=== PATIENT | female | born 1955 | race Caucasian/White ===

== ENCOUNTER 2018-04-29 01:03 | Inpatient (IN) | payer MEDICAID ==
[2018-04-29] VITALS (14 sets, daily range): BP systolic 92–141; BP diastolic 36–77; BMI 21.6
[~2018-04-29] VITALS: Ht 165.1 cm; Wt 70.8 kg
--- NOTE | ~2018-04-29 | HEMODYNAMI ---
PATIENT:GABRIEL PATEL MEDICAL RECORD: [id number] : 59 [id number] ADMISSION DATE: 04/29/18 Generatedon:05/05/201816:12 Patient name: GABRIEL PATEL Patient #: [id number] SSN: : 1955 Date of study: 05/05/2018 Page: Of Hemodynamic Procedure Report Patient Data Patient Demographics Procedure consent was obtained First Name: GABRIEL Gender: Female Last Name: JORGE : 1955 [facility] Initial: LAWSON Age: 62 year(s) Patient #: [id number] Race: Additional ID: [id number] Contact details Address: [address] [place] [address] rd State: [place] City: [place] [place] [place] Zip code: [address] Past Medical History Allergies Allergen Reaction Date Comments Reported Codeine 12/06/2014 Codeine 05/05/2018 Admission Admission Data Admission Date: 04/29/2018 Admission Time: 15:29 Admit Source: Other Room #: D.2118 Lab Results Lab Result Date: 05/05/2018 Lab Result Time: 0:00 Biochemistry Name Units Result Min Max BUN mg/dl 6 -*(----)-- 7 18 Creatinine mg/dl 0.9 --(-*--)-- 0.6 1.3 CBC Name Units Result Min Max Hemoglobin g/dl 9.1 *-(----)-- 13.5 17.5 Procedure Procedure Types Cath Procedure Diagnostic Procedure C [facility] w/Coronaries PCI Procedure Coronary Stent Coronary Stent Initial Peripheral Cath Diagnostic Procedure Semaphore Operator Peripheral Procedures Eovwi-Cchoqif-Ugl-Off Peripheral vascular Intervention Angioplasty Angioplasty Iliac Initial Procedure Description Procedure Date Procedure Date: 05/05/2018 Procedure Start Time: 15:40 Procedure End Time: 16:08 Procedure Staff Name Function Andrey Bosch MD Performing Physician Jian Kam RT Monitor Дмитрий Villa RT Scrub Cesar Vieira RN Nurse Procedure Data Cath Procedure Fluoroscopy Diagnostic fluoroscopy Total fluoroscopy Time: 4.7 time: 4.7 min min Diagnostic fluoroscopy Total fluoroscopy dose: 770 dose: 770 mGy mGy Contrast Material Contrast Material Type Amount (ml) Isovue 300 129 Entry Location Entry Primary Successful Side Size (Fr) Upsize Upsize Entry Closure S uccessful Closure Location 1 (Fr) 2 (Fr) Remarks Device Remarks Femoral Right 5 Fr Exoseal artery Femoral Left 6 Fr Exoseal artery Mid-Length Estimated blood loss: 10 ml Diagnostic catheters Device Type Used For End Catheter Placement MULTIPACK Pigtail 5 Fr Procedure catheter MULTIPACK JL 4.0 5Fr Procedure catheter MULTIPACK 3DRC 5Fr Procedure catheter Procedure Complications No complications Procedure Medications Medication Administration Route Dosage Oxygen etCO2 Nasal cannula 2 l/min Heparin Flush Bag added to field 2 bags (1000units/500ml NS) 0.9% NaCl I.V. 100 ml/hr Lidocaine 2% added to field 20 Fentanyl I.V. 50 mcg Versed I.V. 1 mg Fentanyl I.V. 50 mcg Versed I.V. 1 mg Heparin Bolus I.V. 4000 units Hemodynamics Rest HGB: 9.1 (g/dl) Heart Rate: 70 (bpm) Snapshots Pre Cath Intra NCS Post Cath Vital Signs Time Heart Resp SPO2 etCO2 NIBP (mmHg) Rhythm Pain Sedation Rate (ipm) (%) (mmHg) Status Level (bpm) 15:27:21 76 18 100 31.6 150/70(101) NSR 0 (11) 10(A) , No pain 15:31:39 73 17 100 27.1 124/68(96) NSR 0 (11) 10(A) , No pain 15:35:49 70 16 99 30.1 132/63(95) NSR 0 (11) 10(A) , No pain 15:40:03 71 16 100 25.6 136/61(94) NSR 0 (11) 10(A) , No pain 15:44:21 71 16 100 30.1 123/53(95) NSR 0 (11) 9(A) , No pain 15:48:31 74 16 100 25.6 137/63(100) NSR 0 (11) 9(A) , No pain 15:52:47 73 17 100 24.8 121/60(85) NSR 0 (11) 9(A) , No pain 15:56:59 74 17 100 25.6 124/55(100) NSR 0 (11) 9(A) , No pain 16:01:11 73 16 100 24.8 133/57(94) NSR 0 (11) 9(A) , No pain 16:04:19 71 17 100 27.1 124/65(106) NSR 0 (11) 9(A) , No pain 16:09:33 70 10 99 27.8 140/61(82) NSR 0 (11) 9(A) , No pain Medications Time Medication Route Dose Verified Delivered Reason Notes Effectiveness by by 15:25:36 Oxygen etCO2 2 Andrey Cesar Per physician Nasal l/min Danitza Vieira RN cannula 15:25:44 Heparin Flush added 2 Andrey Cesar used for Bag to bags Danitza Vieira RN procedure (1000units/500ml field NS) 15:25:57 0.9% NaCl I.V. 100 Andreyarpit Nortony Per physician ml/hr Danitza Vieira RN 15:26:06 Lidocaine 2% added 20ml Andrey Cesar used for to vial Danitza Vieira RN procedure field 15:39:38 Fentanyl I.V. 50 Andrey Cesar for sedation mcg Danitza Vieira RN 15:39:44 Versed I.V. 1 mg Andrey Cesar for sedation Danitza Vieira RN 15:41:43 Fentanyl I.V. 50 Andrey Cesar for sedation mcg Danitza Vieira RN 15:41:48 Versed I.V. 1 mg Andrey Cesar for sedation aDnitza Vieira RN 15:48:04 Heparin Bolus I.V. 4000 Andrey Cesar for units Danitza Vieira RN anticoagulation Procedure Log Time Note 15:01:00 Informed consent obtained and on chart 15:01:28 Admit Source: Other 15:02:11 Diagnostic Cath status Elective 15:02:13 Time tracking: Regular hours (M-F 7:00 - 5:00) 15:02:17 Plan of Care:Hemodynamics will remain stable., Cardiac rhythm will remain stable., Comfort level will be maintained., Respiratory function will remain adequate., Patient/ family verbilizes understanding of procedure., Procedure tolerated without complication., Recovers from procedure without complications.. 15:06:01 Cesar Vieira RN sent for patient. Start room use. 15:18:32 Patient received from PCU to CCL 2 Alert and oriented. Tansferred to table in Supine position. 15:18:34 Warm blankets applied, and rabia hugger turned on for patient comfort. 15:18:34 Correct patient and procedure confirmed by team. 15:18:36 ECG and BP/O2 sat monitors applied to patient. 15:25:36 Oxygen 2 l/min etCO2 Nasal cannula was administered by Cesar Vieira RN; Per physician; 15:25:44 Heparin Flush Bag (1000units/500ml NS) 2 bags added to field was administered by Cesar Vieira RN; used for procedure; 15:25:57 0.9% NaCl 100 ml/hr I.V. was administered by Cesar Vieira RN; Per physician; 15:26:06 Lidocaine 2% 20ml vial added to field was administered by Cesar Vieira RN; used for procedure; 15:26:08 Vital chart was started 15:34:18 Baseline sample Acquired. 15:34:30 Rhythm: sinus rhythm 15:34:31 Full Disclosure recording started 15:35:26 H&P Date Dictated: 04/29/2018 Within 30 days and on chart.. 15:36:22 Pre-procedure instructions explained to patient. 15:36:25 Pre-op teaching completed and patient verbalized understanding. 15:36:33 Family unavailable. 15:36:35 Patient NPO since Midnight. 15:36:43 Patient allergic to Codeine 15:36:46 Is the patient allergic to Iodine/contrast media? No. 15:37:09 Is patient on blood thinner?Yes 15:37:13 ACC The patient was administered the following blood thiners within the last 24 hours: ACCPlavix 15:37:30 Patient diabetic? No. 15:37:30 ----Pre-sedation anethsthesia assessment.---- 15:37:32 Previous problem with sedation/anesthesia? No ? 15:37:35 Snore? Yes 15:37:36 Sleep apnea? No 15:37:39 Deviated septum? No 15:37:40 Opens mouth fully? Yes 15:37:41 Sticks out tongue? Yes 15:37:45 Airway obstruction? Yes COPD 15:37:53 Dentures? Yes IN TIGHT 15:37:58 Pre procedure: right dorsailis pedis pulse 1+ Palpable, but thready & weak; easily obliterated 15:38:20 Patient pain scale 0/10 ?. 15:38:31 IV patent on arrival in left antecubital with 0.9% NaCl at 10ml/hr. 15:38:56 Lab Result : Creatinine 0.9 mg/dl 15:38:56 Lab Result : BUN 6 mg/dl 15:38:56 Lab Result : Hemoglobin 9.1 g/dl 15:38:58 Lab results completed and on chart. 15:39:02 Right groin area was prepped with chlora-prep and draped in sterile fashion 15:39:02 Alarms reviewed by R. N. 15:39:03 Sharps counted by scrub and verified by R.N. 15:39:06 Physician arrived 15:39:07 --------ALL STOP TIME OUT------ 15:39:07 Final Timeout: patient, procedure, and site verified with staff and physician. All members of the team are in agreement. 15:39:09 Right groin site verified by team. 15:39:13 Physical assessment completed. ASA score P 3 - A patient with severe systemic disease as per Andrey Bosch MD. 15:39:18 Sedation plan: IV Moderate Sedation Medication:Versed, Fentanyl 15:39:24 Use device set Femoral Dx 15:39:25 ACIST Syringe (56367) opened to sterile field. 15:39:25 Bag Decanter () opened to sterile field. 15:39:26 Medline Cath Pack ([id number]) opened to sterile field. 15:39:26 DIAGNOSTIC WIRE .035 260cm J wire (960629) opened to sterile field. 15:39:28 ACIST Hand Control (43015) opened to sterile field. 15:39:28 ACIST Manifold (18162) opened to sterile field. 15:39:29 DIAGNOSTIC Multipack 5Fr catheter set (BR1107) opened to sterile field. 15:39:29 Tegaderm 4 x 4 (1626W) opened to sterile field. 15:39:29 MICROPUNCTURE 4FR Cook ([id number]) opened to sterile field. 15:39:31 SHEATH 5FR [place] (MIQ198) opened to sterile field. 15:39:38 Fentanyl 50 mcg I.V. was administered by Cesar Vieira RN; for sedation; 15:39:44 Versed 1 mg I.V. was administered by Cesar Vieira RN; for sedation; 15:40:01 Zero performed for pressure channel P1 15:40:54 Procedure started. 15:40:57 Local anesthetic to right femoral artery with Lidocaine 2% by Andrey Bosch MD.INITIAL ACCESS ONLY 15:41:05 A 5 Fr sheath was inserted into the Right Femoral artery 15:41:43 Fentanyl 50 mcg I.V. was administered by Cesar Vieira RN; for sedation; 15:41:48 Versed 1 mg I.V. was administered by Cesar Vieira RN; for sedation; 15:41:50 A MULTIPACK Pigtail 5 Fr catheter was advanced over the wire and used for Procedure. 15:42:00 LV gram done using AUGUSTIN 15:42:02 Injector settings: Ml/sec: 10, Volume: 20, 15:42:03 LV hemodynamics recorded. 15:42:08 EF : 55 % 15:42:28 Abdominal angiogram w/ runoff was performed. 15:42:30 Right leg runoff performed. 15:42:54 Left leg runoff performed. 15:43:21 SHEATH 6FR Brite Tip 35cm ([id number]) opened to sterile field. 15:43:25 INFLATOR Merit BasixCompak (JZ6491) opened to sterile field. 15:43:29 Catheter exchanged over wire. 15:43:34 A MULTIPACK JL 4.0 5Fr catheter was advanced over the wire and used for Procedure. 15:43:38 LCA angiography performed. 15:43:40 Catheter exchanged over wire. 15:43:46 A MULTIPACK 3DRC 5Fr catheter was advanced over the wire and used for Procedure. 15:43:48 RCA angiography performed. 15:45:18 Catheter removed. 15:46:22 Local anesthetic to left femerol artery with Lidocaine 2% by Andrey Bosch MD.ADDITIONAL ACCESS 15:46:34 A 6 Fr Mid-Length sheath was inserted into the Left Femoral artery 15:46:56 J wire advanced. 15:48:04 Heparin Bolus 4000 units I.V. was administered by Cesar Vieira RN; for anticoagulation; 15:49:07 Wire advanced across lesion. 15:49:12 Inflate balloon Inflation number: 1 A POWERFLEX PRO 7.0 x 20 x 135 cm balloon ([id number]) was prepped and advanced across the Ostial Common Iliac, Left, then inflated to 13 DALLIN for 0:10 (min:sec). 15:49:30 GUIDE 6FR XBLAD 3.5 catheter ([id number]) opened to sterile field. 15:49:45 EXOSEAL 6Fr (EX600) opened to sterile field. 15:50:03 Balloon removed over the wire. 15:50:22 6 Fr XBLAD 3.5 guide catheter was inserted over the wire 15:51:30 CHOICE PT ES wire advanced. 15:51:53 Wire advanced across lesion. 15:53:15 Inflate balloon Inflation number: 1 A EUPHORA 2.0 x 20 Balloon ([id number]) was prepped and advanced across the Mid CX, then inflated to 15 DALLIN for 0:10 (min:sec). 15:53:29 Inflation number: 2 The EUPHORA 2.0 x 20 Balloon ([id number]) was reinflated across the Mid CX, to 21 DALLIN for 0:10 (min:sec). 15:54:02 Balloon re-inserted over wire. 15:54:53 Place stent Inflation Number: 3 A INTEGRITY RX 2.5 x 22 stent ([id number]) was prepped and advanced across the Mid CX. The stent was deployed at 17 DALLIN for 0:10 (min:sec). 15:56:58 Inflate balloon Inflation number: 4 A NC EUPHORA 2.5 x 12 balloon ([id number]) was prepped and advanced across the Mid CX, then inflated to 23 DALLIN for 0:10 (min:sec). 15:57:44 Balloon removed over the wire. 15:57:45 Wire removed. 15:57:48 Guide catheter removed. 15:58:00 EXOSEAL 5Fr (EX500) opened to sterile field. 15:58:08 Sheath removed intact; hemostasis achieved with Exoseal to the Left Femoral artery. 15:58:13 Sheath removed intact; hemostasis achieved with Exoseal to the Right Femoral artery. 15:58:14 Procedure ended.(Physican Out) 16:06:09 Fluoroscopy time 04.70 minutes. 16:06:21 Flurop Dose total: 770 16:06:21 Fluoroscopy dose: 770 mGy 16:06:27 Contrast amount:Isovue 300 129ml. 16:06:31 Sharps counted by scrub and verified by R.N. 16:06:33 Insertion/operative site no bleeding no hematoma. 16:07:04 Post-op/insertion site Right Femoral artery dressed using a 4 x 4 and Tegaderm. 16:07:06 Post-op/insertion site Left Femoral artery dressed using a 4 x 4 and Tegaderm. 16:07:13 Post right femoral artery:stable, soft, clean and dry 16:07:17 Post left femerol artery:stable, soft, clean and dry 16:07:19 Post Procedure Pulses reassessed and unchanged 16:07:26 Post-procedure physical assessment completed. ASA score P 3 - A patient with severe systemic disease as per Andrey Bosch MD. 16:07:50 Post procedure rhythm: unchanged. 16:07:53 Estimated blood loss: 10 ml 16:07:57 Post procedure instruction explained to patient.Patient verbalizes understanding. 16:07:57 Patient needs reinforcement of post procedure teaching. 16:08:22 Procedure type changed to Cath procedure, Diagnostic procedure, LHC, LHC w/Coronaries, PCI procedure, Coronary Stent, Coronary Stent Initial, Peripheral Cath Diagnostic Procedure, Semaphore Operator Peripheral Procedures, Fjmwu-Aegiglj-Oiz-Off, Peripheral vascular Intervention, Angioplasty, Angioplasty Iliac Initial 16:08:36 Procedure and supply charges have been captured, reviewed, submitted and are correct. 16:08:38 Procedure Complication : No complications 16:08:40 Vital chart was stopped 16:08:41 See physician's report for complete and final results. 16:08:42 Report given to PCU. 16:08:45 Patient transfered to PCU with Stretcher. 16:08:46 Procedure ended. 16:08:46 Full Disclosure recording stopped 16:08:50 End room use (Document Last) Intervention Summary Intervention Notes Time ActionType Lesion and Equipment Action# Pressure Duration Attributes Used 15:49:12 Inflate Ostial POWERFLEX 1 13 00:10 balloon Common PRO 7.0 x 20 Iliac, Left x 135 cm balloon ([id number]) 15:53:15 Inflate Mid CX EUPHORA 2.0 1 15 00:10 balloon x 20 Balloon ([id number]) 15:53:29 Reinflate Mid CX EUPHORA 2.0 2 21 00:10 balloon x 20 Balloon ([id number]) 15:54:53 Place stent Mid CX INTEGRITY RX 3 17 00:10 2.5 x 22 stent ([id number]) 15:56:58 Inflate Mid CX NC EUPHORA 4 23 00:10 balloon 2.5 x 12 balloon ([id number]) Device Usage Item Name Manufacture Quantity Catalog Hospital Part Current Minima l Lot# / Number Charge Number Stock Stock Serial# Code ACIST Syringe Acist 1 83374 120173 510510 059174 20 (09385) Medical Systems Inc Bag Decanter Microtek 1 771498 82591 564691 5 () Medical Inc. Medline Cath Medline 1 [id number] 171292 07123 813652 5 Pack ([id number]) DIAGNOSTIC St Elfego 1 883332 323803 903194 037565 30 WIRE .035 260cm J wire (634932) ACIST Hand Acist 1 38469 505676 132448 101308 5 Control Medical (34908) Systems Inc ACIST Acist 1 67365 232195 597261 352379 5 Manifold Medical (48403) Systems Inc DIAGNOSTIC Cardinal 1 GE7820 952051 43948 340423 30 Multipack 5Fr Health catheter set (VT5066) Tegaderm 4 x 3M 1 1626W 298354 696647 827559 5 4 (1626W) MICROPUNCTURE Cook Medical 1 X01199 701375 337498 513431 5 4FR Cook (E49602) SHEATH 5FR Terumo 1 CYR924 447260 792016 540534 5 [place] (BBT083) MULTIPACK Cardinal 1 816158 5 Pigtail 5 Fr Health catheter SHEATH 6FR Cardinal 1 608806G 764239 741329 700217 1 CHNLe [place] Health 35cm (633336C) INFLATOR Merit 1 EP7497 908204 422243 307453 15 [facility] Medical BasixCompak (JD6981) MULTIPACK JL Cardinal 1 456647 5 4.0 5Fr Health catheter MULTIPACK Cardinal 1 812496 5 3DRC 5Fr Health catheter POWERFLEX PRO Cardinal 1 [id number] 955983 614058 017409 5 7.0 x 20 x Health 135 cm balloon (2709709F) GUIDE 6FR Cardinal 1 [id number] 715037 882795 419628 10 XBLAD 3.5 Health catheter ([id number]) EXOSEAL 6Fr Cardinal 1 EX600 592509 931145 770056 10 (EX600) Health EUPHORA 2.0 x Medtronic 1 [id number] 460433 234485 704214 5 [id number] 20 Balloon ([id number]) INTEGRITY RX Medtronic 1 [id number] 984289 143206 607554 5 [id number] 2.5 x 22 stent ([id number]) NC EUPHORA Medtronic 1 [id number] 359660 581950 682311 1 [id number] 2.5 x 12 balloon ([id number]) EXOSEAL 5Fr Cardinal 1 EX500 242426 889162 878535 10 (EX500) Health Signature Audit [place] Stage Time Signature Unsigned Intra-Procedure 05/05/2018 Jian Kam 4:12:07 PM RT(R) Signatures Monitor : Jian Kam RT Signature : Date : Time : [address] [place] [address]
[~2018-04-29 01:03] MED LIST: ASPIRIN81 MG PO; CLEOCIN HCL150 MG PO; EFFIENT10 MG PO; HYDROCODONE-APA1 TAB PO; IBUPROFEN200 MG PO; LISINOPRIL-HCTZ1 T11 PO; PERCOCET 10/3251 TA1 PO; PHENERGAN25 M1 PO; PLAVIX75 MG PO
[2018-04-29 01:44] LABS: BASOPHILS 0.2 % (0-2); HEMATOCRIT 34.5 % (36.0-48.0); HEMOGLOBIN 11.3 g/dL (12-16); IMMATURE GRANULOCYTES 0.7 % (0-5); LYMPHOCYTES 27.6 % (15-50); MCH 30.3 pg (26.0-34.0); MCHC 32.8 g/dL (31.0-37.0); MCV 92.5 fL (80.0-100.0); MEAN PLATELET VOLUME 9.5 fL (7.4-10.4); MONOCYTES 7.8 % (2-11); NEUTROPHILS 62.7 % (40-80); PLATELET COUNT 289 10x3/uL (130-400); RBC 3.73 10x6/uL (4.00-5.40); RDW 14.1 % (11.5-14.5)
[2018-04-29 01:54] LABS: INR 1.05 (0.85-1.17); PROTIME 13.2 SECONDS (11.6-15.0)
[2018-04-29 01:55] LABS: APTT 30.6 SECONDS (22.8-39.4)
[2018-04-29 01:58] LABS: ALBUMIN 2.9 g/dL (3.4-5.0); ANION GAP 10.1 mmol/L (8-16); BILIRUBIN - TOTAL 0.12 mg/dL (0.2-1.3); CALCIUM 8.8 mg/dL (8.5-10.1); CARBON DIOXIDE 27.6 mmol/L (21.0-32.0); CREATININE - SERUM 1.5 mg/dL (0.6-1.3); POTASSIUM - SERUM 3.7 mmol/L (3.5-5.1); PROTEIN - SERUM 6.3 g/dL (6.4-8.2)
[2018-04-29 02:28] LABS: CKMB 3.8 U/L (0.0-3.6); CREATINE KINASE 55 UL (21-215); TROPONIN-I 0.021 ng/mL (0.000-0.060)
[2018-04-29 03:26] LABS: HEMATOCRIT 33.7 % (36.0-48.0); HEMOGLOBIN 11.1 g/dL (12-16); MCH 30.5 pg (26.0-34.0); MCHC 32.9 g/dL (31.0-37.0); MCV 92.6 fL (80.0-100.0); MEAN PLATELET VOLUME 9.7 fL (7.4-10.4); RBC 3.64 10x6/uL (4.00-5.40); RDW 14.3 % (11.5-14.5); WBC 9.4 10x3/uL (4.8-10.8)
--- NOTE | 2018-04-29 13:29 | CN ---
PATIENT NAME:GABRIEL BUSTAMANTE MEDICAL RECORD: [id number] : 59 LOCATION:[facility] ADMIT DATE: 04/29/18 ACCOUNT: [id number] CONSULTING PHYSICIAN: JUVE BRUMFIELD MD REFERRING PHYSICIAN: JUVE BRUMFIELD MD DATE OF CONSULTATION: 04/29/2018 CARDIOLOGY CONSULTATION DIAGNOSES: 1. PVD. 2. Claudication. 3. Limb threatening ischemia, left leg. 4. Angina. 5. Unsteady gait, dizziness. HISTORY OF PRESENT ILLNESS: Mrs. Bustamante presents with multiple complaints, but her main complaint is cold painful left lower extremity. She does have a history of peripheral vascular disease and has had a stent in that leg. It has been a number of years ago, it came on her 2 days ago. It has worsened. She was put on a heparin drip. The leg is now warmer, but she continues to have significant pain. She as well has had chest pain compatible with angina. She has not had a history of coronary artery disease and as well has had unsteady gait, multiple episodes of dizziness and near syncope. PHYSICAL EXAMINATION: GENERAL APPEARANCE: Well-nourished, well-developed, appears stated age. Level of distress, comfortable. PSYCHIATRIC: Mental status, alert, normal affect. Orientation, oriented to time, place and person. EYES: Lids and conjunctiva, noninjected. No discharge, no pallor. ENT: Lips, teeth, gums, normal dentition. Oropharynx, no cyanosis, no pallor. NECK: Carotid arteries, bilateral normal upstroke, no bruits, no thrills. JUGULAR VEINS: No jugular venous pressure or distention. CERVICAL LYMPH NODES: Nontender, nonenlarged. THYROID: Not enlarged. Nontender. No nodules. LUNGS: Respiratory effort, unlabored. CHEST: Normal curvature. No thoracic deformity. No chest wall tenderness. Percussion, resonant. Auscultation, clear. No wheezes, no rales, no rhonchi. CARDIOVASCULAR: Precordial exam, nondisplaced. No heaves or pericardial thrills. Rate and rhythm, regular. Heart sounds, normal S1, normal S2. No S3, no gallop, no rub. Systolic murmur, not heard. Diastolic murmur, not heard. EXTREMITIES: No cyanosis, no edema. Peripheral pulses, full and equal in all extremities, except as noted. No bruits appreciated. ABDOMEN: Soft, nondistended. Normal aorta. No bruit. Nontender. No masses. Liver, nontender, no hepatomegaly. Spleen, nontender, no splenomegaly. MUSCULOSKELETAL: No joint tenderness. No joint swelling. No erythema. NEUROLOGICAL: Normal gait, normal strength, normal tone. SKIN: Warm and dry. OVERALL IMPRESSION: The leg discomfort being acute associated with a cool leg in a patient with a past history of peripheral vascular disease is extremely concerning for limb threatening ischemia. We will proceed with aortofemoral runoff as well. Due to the chest pain, we will proceed with coronary angiography and we will do 4-vessel carotid vertebral angiography due to the CONSULT REPORT [id number] GABRIEL BUSTAMANTE neurologic symptomatology. TRANSINT:[id number] Voice Confirmation ID: [id number] DOCUMENT ID: [id number] JUVE BRUMFIELD MD at 1329 CC: [id number] DICTATION DATE: 04/29/18919 PEANUT SHELLER: 04/29/18 1212 ADM IN [facility] [address] [place] [address]
[2018-04-29 16:03] LABS: BASOPHILS 0.4 % (0-2); EOSINOPHILS 1.1 % (0-7); HEMATOCRIT 38.8 % (36.0-48.0); HEMOGLOBIN 12.5 g/dL (12-16); IMMATURE GRANULOCYTES 0.4 % (0-5); LYMPHOCYTES 32.1 % (15-50); MCH 30.7 pg (26.0-34.0); MCHC 32.2 g/dL (31.0-37.0); MONOCYTES 8.7 % (2-11); NEUTROPHILS 57.3 % (40-80); PLATELET COUNT 307 10x3/uL (130-400); RBC 4.07 10x6/uL (4.00-5.40); RDW 14.5 % (11.5-14.5); WBC 11.1 10x3/uL (4.8-10.8)
[2018-04-29 16:04] LABS: MCV 95.3 fL (80.0-100.0)
[2018-04-29 16:44] LABS: ANION GAP 12.7 mmol/L (8-16); CALCIUM 8.6 mg/dL (8.5-10.1); CARBON DIOXIDE 25.2 mmol/L (21.0-32.0); CREATININE - SERUM 1.2 mg/dL (0.6-1.3); POTASSIUM - SERUM 3.9 mmol/L (3.5-5.1)
--- NOTE | 2018-04-29 17:01 | MORECARE ---
CASE MANAGEMENT DISCHARGE SUMMARY PATIENT: GABRIEL PATEL UNIT: [id number] ADM DATE: 04/29/18 AGE: 62 : 59 SEX: F ROOM/BED: D.E13 AUTHOR: CHRISSY SEARS PHYSICIAN: REFERRING PHYSICIAN: ARPITA RAYMUNDO MD DATE OF SERVICE: 04/29/18 Discharge Plan Patient Name[facility]ABRIEL [facility] [facility] 1955 Planned Disposition: Home Anticipated Discharge Date: 05/01/18 Discharge Date: Expected LOS: 2 Initial Reviewer: [email or web address] Initial Review Date: 04/29/2018 Generated: 04/29/18 6:00 pm DCPIA - Discharge Planning Initial Assessment Updated by [email or web address]: Brisa Walton on 04/29/18 5:00 pm * Is the patient Alert and Oriented? Yes * How many steps to enter\exit or inside your home? None * PCP Doesn't have a PCP * Pharmacy [facility] * Preadmission Environment Home Alone * ADLs Independent * Equipment None * List name and contact numbers for known caregivers / representatives who currently or will assist patient after discharge: Keo Calderon [facility] - [phone] * Verbal permission to speak to the caregivers and representatives has been obtained from the patient. Yes * Community resources currently utilized None * Additional services required to return to the preadmission environment? No * Can the patient safely return to the preadmission environment? Yes * Has this patient been hospitalized within the prior 30 days at any hospital? No Patient Name: GABRIEL PATEL Page 25149 at 1701 All edits/amendments must be made on the electronic document DICTATION DATE: 04/29/181699 INCOME TAX EXPERT: COTY 04/29/181699 RPT#: [id number] DC DATE: STATUS: ADM IN [facility] [address] [place] [address] END OF REPORT
--- NOTE | 2018-04-29 17:09 | MORECARE ---
CASE MANAGEMENT DISCHARGE SUMMARY PATIENT: GABRIEL PATEL UNIT: [id number] ADM DATE: 04/29/18 AGE: 62 : 59 SEX: F ROOM/BED: D.E13 AUTHOR: ORIONDOC PHYSICIAN: REFERRING PHYSICIAN: ARPITA RAYMUNDO MD DATE OF SERVICE: 04/29/18 Discharge Plan Patient Name: GABRIEL PATEL Facility: [facility]:[place] : 1955 Planned Disposition: Home Anticipated Discharge Date: 05/01/18 Discharge Date: Expected LOS: 2 Initial Reviewer: [email or web address] Initial Review Date: 04/29/2018 Generated: 04/29/18 6:09 pm DCP- Discharge Planning Updated by [email or web address]: Brisa Walton on 04/29/18 4:[address] Patient Name: GABRIEL PATEL Admission Status: ER Accout number: [id number] Admission Date: 04-29-2018 : 1955 Admission Diagnosis: Attending: ARPITA RAYMUNDO Current LOS: 1 Anticipated DC Date: 05-01-2018 Planned Disposition: Home Primary Insurance: MEDICAID [place] Discharge Planning Comments: CM met with patient to complete initial dc planning assessment. CM educated patient on the CM role and verbal consent given by patient to complete assessment. Patient lives at home independently and reports her mother lives with her. At discharge patient plans to return home and feels this is a safe discharge. CM discussed availability of home health, rehab services, and medical equipment. Patient denied known discharge needs at this time. CM will continue to follow and will assist as needed with dc plans/needs. Grocery Caddy: Brisa Walton RN, [facility] DCPIA - Discharge Planning Initial Assessment Updated by [email or web address]: Brisa Walton on 04/29/18 5:00 pm * Is the patient Alert and Oriented? Yes * How many steps to enter\exit or inside your home? None * PCP Doesn't have a PCP * Pharmacy [facility] * Preadmission Environment Home Alone * ADLs Independent * Equipment None * List name and contact numbers for known caregivers / representatives who currently or will assist patient after discharge: Keo Calderon [facility] - [phone] * Verbal permission to speak to the caregivers and representatives has been obtained from the patient. Yes * Community resources currently utilized None * Additional services required to return to the preadmission environment? No * Can the patient safely return to the preadmission environment? Yes * Has this patient been hospitalized within the prior 30 days at any hospital? No Last DP export: 04/29/18 4:00 p Patient Name: GABRIEL PATEL Page 02998 at 1709 All edits/amendments must be made on the electronic document DICTATION DATE: 04/29/181708 VOCATIONAL TECHNICAL EDUCATION DIRECTOR: COTY 04/29/181708 RPT#: [id number] DC DATE: STATUS: ADM IN [facility] [address] [place] [address] END OF REPORT
[2018-04-29 20:04] LABS: HEMATOCRIT 40.4 % (36.0-48.0); HEMOGLOBIN 13.3 g/dL (12-16)
[2018-04-30] VITALS (20 sets, daily range): BP systolic 75–129; BP diastolic 41–72; Ht 165.1 cm; Wt 70.8 kg
[2018-04-30 07:11] LABS: ANION GAP 10.8 mmol/L (8-16); CALCIUM 8.1 mg/dL (8.5-10.1); CARBON DIOXIDE 25.5 mmol/L (21.0-32.0); CREATININE - SERUM 1.1 mg/dL (0.6-1.3); POTASSIUM - SERUM 4.3 mmol/L (3.5-5.1); RBC 3.53 10x6/uL (4.00-5.40)
[2018-04-30 07:12] LABS: HEMOGLOBIN 10.6 g/dL (12-16); MCHC 32.1 g/dL (31.0-37.0); MCV 93.5 fL (80.0-100.0); PLATELET COUNT 287 10x3/uL (130-400); RDW 14.4 % (11.5-14.5)
[2018-04-30 08:14] LABS: ANISOCYTOSIS OCC; LYMPHOCYTES 10 % (15-50); MONOCYTES 5 % (2-11); NEUTROPHILS 73 % (40-80); PLATELET ESTIMATE NORMAL
[2018-04-30 13:38] LABS: HEMATOCRIT 31.9 % (36.0-48.0); HEMOGLOBIN 10.4 g/dL (12-16)
[2018-04-30 15:08] LABS: APPEARANCE CLEAR (CLEAR); BILIRUBIN NEGATIVE (NEGATIVE); COLOR YELLOW (YELLOW); GLUCOSE NEGATIVE (NEGATIVE); KETONE SMALL mg/dL (NEGATIVE); NITRITE NEGATIVE (NEGATIVE); PROTEIN NEGATIVE (NEGATIVE); UROBILINOGEN NORMAL (NORMAL)
[2018-04-30 20:32] LABS: HEMATOCRIT 30.1 % (36.0-48.0); HEMOGLOBIN 9.6 g/dL (12-16)
[2018-05-01] VITALS (15 sets, daily range): BP systolic 79–112; BP diastolic 41–62
[2018-05-01 05:25] LABS: HEMATOCRIT 29.1 % (36.0-48.0); HEMOGLOBIN 9.5 g/dL (12-16); MCH 30.4 pg (26.0-34.0); MCHC 32.6 g/dL (31.0-37.0); MCV 93.3 fL (80.0-100.0); MEAN PLATELET VOLUME 9.9 fL (7.4-10.4); PLATELET COUNT 275 10x3/uL (130-400); RBC 3.12 10x6/uL (4.00-5.40); RDW 14.4 % (11.5-14.5)
[2018-05-01 05:26] LABS: WBC 14.3 10x3/uL (4.8-10.8)
[2018-05-01 05:29] LABS: ANION GAP 11.9 mmol/L (8-16); CALCIUM 8.1 mg/dL (8.5-10.1); CARBON DIOXIDE 24.6 mmol/L (21.0-32.0); CREATININE - SERUM 1.1 mg/dL (0.6-1.3)
[2018-05-01 05:31] LABS: POTASSIUM - SERUM 3.5 mmol/L (3.5-5.1)
[2018-05-01 05:49] LABS: LYMPHOCYTES 19 % (15-50); MONOCYTES 4 % (2-11); NEUTROPHILS 77 % (40-80); PLATELET ESTIMATE NORMAL
[2018-05-02] VITALS: BP 100/38
[2018-05-02 04:00] VITALS: BP 96/53
[2018-05-02 06:12] LABS: BASOPHILS 0.2 % (0-2); HEMATOCRIT 29.4 % (36.0-48.0); HEMOGLOBIN 9.5 g/dL (12-16); IMMATURE GRANULOCYTES 0.2 % (0-5); LYMPHOCYTES 17.2 % (15-50); MCHC 32.3 g/dL (31.0-37.0); MCV 92.7 fL (80.0-100.0); MEAN PLATELET VOLUME 9.8 fL (7.4-10.4); MONOCYTES 7.2 % (2-11); NEUTROPHILS 74.2 % (40-80); PLATELET COUNT 273 10x3/uL (130-400); RBC 3.17 10x6/uL (4.00-5.40); RDW 14.1 % (11.5-14.5)
[2018-05-02 06:30] LABS: ANION GAP 13.2 mmol/L (8-16); CALCIUM 8.8 mg/dL (8.5-10.1); CARBON DIOXIDE 25.8 mmol/L (21.0-32.0)
[2018-05-02 06:41] LABS: WBC 8.8 10x3/uL (4.8-10.8)
[2018-05-02 09:21] VITALS: BP 114/49
[2018-05-02 12:52] VITALS: BP 116/49
[2018-05-02 16:12] VITALS: BP 107/45
[2018-05-02 19:00] VITALS: BP 102/61
[2018-05-03] VITALS: BP 115/49
[2018-05-03 04:00] VITALS: BP 113/67
[2018-05-03 07:29] LABS: BASOPHILS 0.3 % (0-2); EOSINOPHILS 0.9 % (0-7); HEMATOCRIT 29.3 % (36.0-48.0); HEMOGLOBIN 9.5 g/dL (12-16); IMMATURE GRANULOCYTES 0.6 % (0-5); LYMPHOCYTES 17.8 % (15-50); MCH 29.8 pg (26.0-34.0); MCHC 32.4 g/dL (31.0-37.0); MCV 91.8 fL (80.0-100.0); MONOCYTES 5.9 % (2-11); NEUTROPHILS 74.5 % (40-80); RBC 3.19 10x6/uL (4.00-5.40); RDW 14.1 % (11.5-14.5); WBC 7.9 10x3/uL (4.8-10.8)
[2018-05-03 07:30] LABS: PLATELET COUNT 333 10x3/uL (130-400)
[2018-05-03 07:41] LABS: ANION GAP 11.1 mmol/L (8-16); CALCIUM 8.1 mg/dL (8.5-10.1); CARBON DIOXIDE 25.9 mmol/L (21.0-32.0)
[2018-05-03 10:34] VITALS: BP 114/57
[2018-05-03 13:06] VITALS: BP 106/57
[2018-05-03 16:17] VITALS: BP 131/57
[2018-05-03 19:54] VITALS: BP 114/62
[2018-05-04 03:44] VITALS: BP 106/34
[2018-05-04 05:12] LABS: BASOPHILS 0.3 % (0-2); EOSINOPHILS 1.9 % (0-7); HEMOGLOBIN 9.3 g/dL (12-16); IMMATURE GRANULOCYTES 0.7 % (0-5); LYMPHOCYTES 24.9 % (15-50); MCHC 32.1 g/dL (31.0-37.0); MCV 93.5 fL (80.0-100.0); MEAN PLATELET VOLUME 9.9 fL (7.4-10.4); MONOCYTES 8.1 % (2-11); NEUTROPHILS 64.1 % (40-80); PLATELET COUNT 323 10x3/uL (130-400); RDW 14.3 % (11.5-14.5)
[2018-05-04 05:17] LABS: WBC 5.8 10x3/uL (4.8-10.8)
[2018-05-04 05:43] LABS: CALCIUM 8.3 mg/dL (8.5-10.1); CARBON DIOXIDE 23.9 mmol/L (21.0-32.0); CREATININE - SERUM 0.9 mg/dL (0.6-1.3); POTASSIUM - SERUM 3.9 mmol/L (3.5-5.1)
[2018-05-04 09:27] VITALS: BP 102/49
[2018-05-04 11:42] VITALS: BP 111/52
[2018-05-04 15:57] VITALS: BP 113/57
[2018-05-04 20:00] VITALS: BP 128/61
[2018-05-05 04:00] VITALS: BP 132/56
[2018-05-05 05:44] LABS: BASOPHILS 0.5 % (0-2); EOSINOPHILS 2.5 % (0-7); HEMATOCRIT 28.9 % (36.0-48.0); HEMOGLOBIN 9.1 g/dL (12-16); IMMATURE GRANULOCYTES 0.9 % (0-5); LYMPHOCYTES 30.1 % (15-50); MCH 29.4 pg (26.0-34.0); MCHC 31.5 g/dL (31.0-37.0); MCV 93.5 fL (80.0-100.0); MEAN PLATELET VOLUME 9.8 fL (7.4-10.4); MONOCYTES 9.5 % (2-11); NEUTROPHILS 56.5 % (40-80); PLATELET COUNT 384 10x3/uL (130-400); RBC 3.09 10x6/uL (4.00-5.40); RDW 14.3 % (11.5-14.5); WBC 5.7 10x3/uL (4.8-10.8)
[2018-05-05 06:01] LABS: ANION GAP 10.7 mmol/L (8-16); CALCIUM 8.5 mg/dL (8.5-10.1); CREATININE - SERUM 0.9 mg/dL (0.6-1.3); POTASSIUM - SERUM 3.7 mmol/L (3.5-5.1)
[2018-05-05 08:56] VITALS: BP 128/58
[2018-05-05 19:00] VITALS: BP 150/69
[2018-05-06 04:00] VITALS: BP 146/65
[2018-05-06 05:15] LABS: BASOPHILS 0.4 % (0-2); EOSINOPHILS 2.1 % (0-7); HEMATOCRIT 30.7 % (36.0-48.0); HEMOGLOBIN 9.8 g/dL (12-16); LYMPHOCYTES 16.1 % (15-50); MCH 29.6 pg (26.0-34.0); MCHC 31.9 g/dL (31.0-37.0); MCV 92.7 fL (80.0-100.0); MEAN PLATELET VOLUME 9.7 fL (7.4-10.4); MONOCYTES 8.6 % (2-11); NEUTROPHILS 71.8 % (40-80); PLATELET COUNT 396 10x3/uL (130-400); RBC 3.31 10x6/uL (4.00-5.40); RDW 14.2 % (11.5-14.5)
[2018-05-06 05:20] LABS: WBC 7.9 10x3/uL (4.8-10.8)
[2018-05-06 05:32] LABS: ANION GAP 12.4 mmol/L (8-16); CALCIUM 8.5 mg/dL (8.5-10.1); CREATININE - SERUM 0.9 mg/dL (0.6-1.3); POTASSIUM - SERUM 3.4 mmol/L (3.5-5.1)
[2018-05-06 07:00] VITALS: BP 100/67
--- NOTE | 2018-05-06 10:23 | OP ---
PATIENT NAME: GABRIEL PATEL MEDICAL RECORD: [id number] :59 LOCATION:D.M2 D.2118 ADMISSION DATE:04/29/18 SURGEON: JUVE BRUMFIELD MD DATE OF OPERATION: 05/05/2018 PROCEDURES: 1. ENTREPRENEURSHIP PROGRAM DIRECTOR, left iliac. 2. Aortofemoral runoff. 3. Abdominal aortography. INDICATION: Claudication and peripheral vascular disease. PROCEDURE IN DETAIL: After informed consent was obtained with detailed explanation of risks and benefits as well as alternative therapies, the patient elected to proceed with angiogram and angioplasty. The left femoral area was prepped and draped in normal sterile fashion. The left femoral artery was cannulated via modified Seldinger technique with placement of 6-Indonesian sheath. All catheters were exchanged through this sheath. FINDINGS: Abdominal aortography was performed. The catheter was pulled down for aortofemoral runoff. Abdominal aortography reveals no significant abdominal aortic disease. No dissection or aneurysm formation. RIGHT LEG: A. Iliac: The common iliac has a previously placed stent. This is widely patent with no significant restenosis. No disease else arellano throughout the iliac system. B. Femoral system: The common, superficial, and deep femoral have mild irregularities, but no flow-limiting stenosis. C. Popliteal and infrapopliteal vessels are small and diffusely diseased but three-vessel runoff to the foot is present. LEFT LEG: A. Iliac: The common iliac has a previously placed stent with 80% in-stent restenosis. The remainder of the iliacs have only mild irregularities, but no flow-limiting stenosis. B. Femoral system: The common, superficial, and deep femoral have mild irregularities, but no flow-limiting stenosis. C. Popliteal and infrapopliteal vessels are patent. There are small diffusely diseased vessels, but there is preserved 3-vessel runoff to the foot. ENTREPRENEURSHIP PROGRAM DIRECTOR OF THE LEFT ILIAC: We used a 7.0 balloon, taken to 13 atmospheres. Result was 0% residual. OVERALL IMPRESSION: Successful ENTREPRENEURSHIP PROGRAM DIRECTOR for in-stent restenosis of the left iliac, going from 80% initial stenosis to 0% residual. TRANSINT:[id number] Voice Confirmation ID: [id number] DOCUMENT ID: [id number] OPERATIVE REPORT [id number] GABRIEL PATEL JUVE BRUMFIELD MD at 1023 CC: [id number] DICTATION DATE: 05/05/18 1608 ELECTROPHYSIOLOGY TECH: 05/05/18 1732 ADM IN [facility] [address] [id number]
--- NOTE | 2018-05-06 10:23 | OP ---
PATIENT NAME: GABRIEL PATEL MEDICAL RECORD: [id number] :[birth year] LOCATION:D.M2 D.2118 ADMISSION DATE:04/29/18 SURGEON: JUVE BRUMFIELD MD DATE OF OPERATION: 05/05/2018 PROCEDURES: 1. PTCA and stent, left circumflex. 2. Left heart catheterization. 3. Selective coronary angiography. 4. Left ventriculogram. INDICATION: Angina and coronary artery disease. PROCEDURE IN DETAIL: After informed consent was obtained with detailed description of risks and benefits as well as alternative therapies, the patient elected to proceed with angiogram and angioplasty. The left femoral area was prepped and draped in normal sterile fashion. The left femoral artery had a 6-Australian sheath from peripheral intervention. All catheters were exchanged through this sheath. FINDINGS: Left ventriculogram performed in standard 30-degree AUGUSTIN view reveals good cardiac wall motion throughout all segments. Overall ejection fraction is estimated at 60%. SELECTIVE CORONARY ANGIOGRAPHY: 1. Left main is with no significant angiographic disease. 2. Left anterior descending has mild irregularities, but no flow-limiting stenosis. 3. Left circumflex has previously placed stents. 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 Distal vessel fills via faint igfl-[id number]-oagh collaterals. 4. Right coronary has previously placed stents. These are widely patent with no significant in-stent restenosis. No significant disease else arellano. PTCA AND STENT OF LEFT CIRCUMFLEX: We were able to traverse the chronic total occlusion with a Choice PT extra support wire ballooning. This was with 2.0 and 2.5 balloons. We stented with a 2.5 x 22-mm Integrity. Result was 0% residual stenosis. OVERALL IMPRESSION: Successful PTCA and stent of the left circumflex, going from 100% initial stenosis to 0% residual. TRANSINT:[id number] Voice Confirmation ID: [id number] DOCUMENT ID: [id number] JUVE BRUMFIELD MD at 1023 CC: [id number] DICTATION DATE: 05/05/18 1608 LOGISTICS OPERATIONS DIRECTOR: 05/05/18 1729 [place] [address]
[2018-05-06] MEDS ORDERED: PLAVIX75 MG PO (12:18)
[2018-05-06] MEDS ORDERED: CARAFATE1 G PO (12:20)
[2018-05-06] MEDS ORDERED: PROTONIX40 MG PO (12:20)
[2018-05-06 13:02] VITALS: BP 136/62
--- NOTE | 2018-05-07 08:14 | MORECARE ---
CASE MANAGEMENT DISCHARGE SUMMARY PATIENT: GABRIEL PATEL UNIT: [id number] ADM DATE: 04/29/18 AGE: 62 : 59 SEX: F ROOM/BED: D.6824 AUTHOR: [employer] PHYSICIAN: REFERRING PHYSICIAN: ARPITA RAYMUNDO MD DATE OF SERVICE: 05/07/18 Discharge Plan Patient Name: GABRIEL PATEL Facility: [facility]:[place] : 1955 Planned Disposition: Home Anticipated Discharge Date: 05/06/18 Discharge Date: 05/06/2018 Expected LOS: 7 Initial Reviewer: [email or web address] Initial Review Date: 04/29/2018 Generated: 05/07/18 9:14 am DCP- Discharge Planning Updated by [email or web address]: Brisa Walton on 04/29/18 4:[address] Patient Name: GABRIEL PATEL Admission Status: ER Accout number: [id number] Admission Date: 04-29-2018 : 1955 Admission Diagnosis: Attending: ARPITA RAYMUNDO Current LOS: 1 Anticipated DC Date: 05-01-2018 Planned Disposition: Home Primary Insurance: MEDICAID [place] Discharge Planning Comments: CM met with patient to complete initial dc planning assessment. CM educated patient on the CM role and verbal consent given by patient to complete assessment. Patient lives at home independently and reports her mother lives with her. At discharge patient plans to return home and feels this is a safe discharge. CM discussed availability of home health, rehab services, and medical equipment. Patient denied known discharge needs at this time. CM will continue to follow and will assist as needed with dc plans/needs. [employer]bin Cleaning Machine Operator: Brisa Walton RN, [facility] DCPIA - Discharge Planning Initial Assessment Updated by : Brisa Walton on 04/29/18 5:00 pm * Is the patient Alert and Oriented? Yes * How many steps to enter\exit or inside your home? None * PCP Doesn't have a PCP * Pharmacy [facility] * Preadmission Environment Home Alone * ADLs Independent * Equipment None * List name and contact numbers for known caregivers / representatives who currently or will assist patient after discharge: Keo Greenbergs [facility] - [phone] * Verbal permission to speak to the caregivers and representatives has been obtained from the patient. Yes * Community resources currently utilized None * Additional services required to return to the preadmission environment? No * Can the patient safely return to the preadmission environment? Yes * Has this patient been hospitalized within the prior 30 days at any hospital? No Last DP export: 04/29/18 4:09 p Patient Name: GABRIEL PATEL Page [id number] at 0814 All edits/amendments must be made on the electronic document DICTATION DATE: 05/07/18813 SERVICE ORDER TAKER: COTY 05/07/18813 RPT#: [id number] DC DATE:05/06/18 STATUS: DIS IN [facility] [address] [place] [address] END OF REPORT
== END 2018-05-06 16:15 | disposition home or self-care (01) | DRG 248 ==
LOC: D.ER 01:03 → OBSVTIME 02:18 → D.EDHOLD 02:18 → D.CLR 02:18 → D.EDHOLD 06:10 → D.CLR 10:03 → D.EDHOLD 15:29 → D.CVICU 15:29 → D.EDHOLD 15:30 → D.CVICU 18:31 → D.ICU 04-30 14:51 → D.M2 05-01 14:15
PROVIDERS: Emergency Medicine; Family Medicine; Internal Medicine Gastroenterology; Internal Medicine Interventional Cardiology; ADMIT Internal Medicine Nephrology
PROC: 0DJ08ZZ Inspection of Upper Intestinal Tract, Via Natural or Artificial Opening Endoscopic (ICD-10-PCS; 2018-04-29)
PROC: 0DB68ZX Excision of Stomach, Via Natural or Artificial Opening Endoscopic, Diagnostic (ICD-10-PCS; 2018-05-02)
PROC: B2111ZZ Fluoroscopy of Multiple Coronary Arteries using Low Osmolar Contrast (ICD-10-PCS; 2018-05-05)
PROC: B2151ZZ Fluoroscopy of Left Heart using Low Osmolar Contrast (ICD-10-PCS; 2018-05-05)
PROC: 02703DZ Dilation of Coronary Artery, One Artery with Intraluminal Device, Percutaneous Approach (ICD-10-PCS; principal; 2018-05-05 15:40)
PROC: 067D3ZZ Dilation of Left Common Iliac Vein, Percutaneous Approach (ICD-10-PCS; 2018-05-05 15:40)
PROC: 4A023N7 Measurement of Cardiac Sampling and Pressure, Left Heart, Percutaneous Approach (ICD-10-PCS; 2018-05-05 15:40)
DX: T82.856A Stenosis of peripheral vascular stent, initial encounter (principal); K22.6 Gastro-esophageal laceration-hemorrhage syndrome; J69.0 Pneumonitis due to inhalation of food and vomit; Y83.8 Other surgical procedures as the cause of abnormal reaction of the patient, or of later complication, without mention of misadventure at the time of the procedure; I70.212 Atherosclerosis of native arteries of extremities with intermittent claudication, left leg; I25.119 Atherosclerotic heart disease of native coronary artery with unspecified angina pectoris; I10 Essential (primary) hypertension; F17.200 Nicotine dependence, unspecified, uncomplicated; E78.5 Hyperlipidemia, unspecified; K21.0 Gastro-esophageal reflux disease with esophagitis; K44.9 Diaphragmatic hernia without obstruction or gangrene; K29.70 Gastritis, unspecified, without bleeding

== ENCOUNTER 2018-11-05 03:45 | Emergency (ER) | payer MEDICAID ==
[~2018-11-05] VITALS: Ht 165.1 cm; Wt 61.4 kg
[~2018-11-05 03:45] MED LIST changes: +CARAFATE1 G PO; +PROTONIX40 MG PO
[2018-11-05 03:48] VITALS: Ht 165.1 cm; Wt 61.4 kg
[2018-11-05] MEDS ORDERED: ISOSORBIDE MONO30 M1 PO (04:37)
[2018-11-05] MEDS ORDERED: NITROSTAT0.4 MG SL (04:37)
[2018-11-05 05:14] LABS: BASOPHILS 0.4 % (0-2); EOSINOPHILS 3.2 % (0-7); HEMATOCRIT 34.7 % (36.0-48.0); HEMOGLOBIN 11.4 g/dL (12-16); IMMATURE GRANULOCYTES 0.2 % (0-5); LYMPHOCYTES 22.8 % (15-50); MCH 29.5 pg (26.0-34.0); MCHC 32.9 g/dL (31.0-37.0); MCV 89.9 fL (80.0-100.0); MEAN PLATELET VOLUME 9.3 fL (7.4-10.4); MONOCYTES 7.9 % (2-11); NEUTROPHILS 65.5 % (40-80); PLATELET COUNT 339 10x3/uL (130-400); RBC 3.86 10x6/uL (4.00-5.40); RDW 14.9 % (11.5-14.5); WBC 10.9 10x3/uL (4.8-10.8)
[2018-11-05 05:23] LABS: ALBUMIN 3.9 g/dL (3.4-5.0); ALKALINE PHOSPHATASE 96 U/L (46-116); ALT (SGPT) 17 U/L (10-68); BILIRUBIN - TOTAL 0.37 mg/dL (0.2-1.3); CALC OSMOLALITY 275 mosm/kg (275-300); CALCIUM 9.4 mg/dL (8.5-10.1); CARBON DIOXIDE 27.3 mmol/L (21.0-32.0); CHLORIDE - SERUM 100 mmol/L (98-107); CREATININE - SERUM 1.5 mg/dL (0.6-1.3); GLUCOSE 120 mg/dL (74-106); POTASSIUM - SERUM 4.4 mmol/L (3.5-5.1); PROTEIN - SERUM 7.6 g/dL (6.4-8.2); SODIUM 135 mmol/L (136-145); UREA NITROGEN 26 mg/dL (7-18); eGFR NON AFRICAN AMERICAN 37 mL/min (90-120)
[2018-11-05 05:27] LABS: CREATINE KINASE 87 UL (21-215)
[2018-11-05 05:35] LABS: TROPONIN-I < 0.017 ng/mL (0.000-0.060)
[2018-11-05] MEDS ORDERED: XANAX0.25 MG PO (05:47)
[2018-11-05 06:26] VITALS: BP 111/69
== END 2018-11-05 06:26 | disposition home or self-care (01) ==
LOC: D.ER 03:45
PROVIDERS: Emergency Medicine
DX: I20.9 Angina pectoris, unspecified (principal)

== ENCOUNTER → 2018-12-02 11:45 | Outpatient (CLI) | payer MEDICAID ==
[2018-11-05 03:48] VITALS: BMI 22.5
[~2018-12-02 11:45] MED LIST changes: +CHANTIX 1 MG TAB1 MG PO; +ISOSORBIDE MONO30 M1 PO; +NITROSTAT0.4 MG SL; +XANAX0.25 MG PO
--- NOTE | 2018-12-09 11:09 | ST ---
PATIENT:GABRIEL PATEL MEDICAL RECORD: [id number] SEX: F LOCATION:[facility] ORDER #: ADMISSION DATE: 12/02/18 AGE OF PATIENT: 63 REFERRING PHYSICIAN: INTERPRETING PHYSICIAN: JUVE BRUMFIELD MD DATE OF SERVICE: 12/02/2018 PROCEDURE: Nuclear stress test. INDICATION: Angina, coronary artery disease, hypertension and smoking history. TECHNIQUE: She was exercised on standard Lexiscan protocol with 33 mCi of sestamibi injected at peak stress, 11 mCi used previously for rest images. FINDINGS: Gated SPECT reveals preserved ejection fraction at 73% with good wall motion and thickening and brightening throughout all segments. SPECT imaging Cardiolite was used as myocardial perfusion agent. There are reversible changes inferiorly as well as laterally. Inferior includes the basal, mid, apical inferior segments. Laterally includes the basal, mid, apical, and lateral segments. The degree of reversibility is mild inferiorly, severe laterally. The amount of myocardium involved between the 2 defects is large. OVERALL IMPRESSION: This is a high risk abnormal nuclear stress test with a large amount of myocardium involved with reversible ischemia inferiorly and laterally suggestive of multivessel coronary artery disease. We will proceed with coronary angiography as followup study. TRANSINT:[id number] Voice Confirmation ID: [id number] DOCUMENT ID: [id number] JUVE BRUMFIELD MD at 1109 CC: [id number] DICTATION DATE: 12/02/18 1629 NIGHTMAN: 12/02/18 2253 DEP CLI 12/02/18 [id number] [place] [address]
== END | disposition home or self-care (01) ==
LOC: D.HCCARDIO 11:45
PROVIDERS: ATTEND Internal Medicine Interventional Cardiology
DX: I25.10 Atherosclerotic heart disease of native coronary artery without angina pectoris (principal)

== ENCOUNTER 2018-12-05 09:20 | Outpatient (CLI) | payer MEDICAID ==
[~2018-12-05] VITALS: Ht 165.1 cm; Wt 62.7 kg
--- NOTE | ~2018-12-05 | HEMODYNAMI ---
PATIENT:GABRIEL PATEL MEDICAL RECORD: [id number] : 59 LOCATION:[facility] ADMISSION DATE: 12/05/18 Generatedon:12/05/201814:34 Patient name: GABRIEL PATEL Patient #: [id number] SSN: : 1955 Date of study: 12/05/2018 Page: Of Hemodynamic Procedure Report Patient Data Patient Demographics Procedure consent was obtained First Name: GABRIEL Gender: Female Last Name: JORGE : 1955 [facility] Initial: LAWSON Age: 63 year(s) Patient #: [id number] Race: Additional ID: [id number] Contact details Address: [address] [place] [address] rd State: [place] City: [facility] Zip code: [address] Past Medical History Allergies Allergen Reaction Date Comments Reported Codeine 12/06/2014 Codeine 05/05/2018 Codeine 12/05/2018 Admission Admission Data Admission Date: 12/05/2018 Admission Time: 9:20 Height (in.): 64.96 BSA: 1.69 (m2) Height (cm.): 165 BMI: 23.14 (kg/m2) Weight (lbs.): 138.89 Weight (kg.): 63 Lab Results Lab Result Date: 12/05/2018 Lab Result Time: 0:00 Biochemistry Name Units Result Min Max BUN mg/dl 30 --(----)-* 7 18 Creatinine mg/dl 1.2 --(---*)-- 0.6 1.3 eGFR ml/min 48 *-(----)-- 90 120 NONAFRICAN CBC Name Units Result Min Max Hematocrit % 38.1 *-(----)-- 42 54 Hemoglobin g/dl 12.7 -*(----)-- 13.5 17.5 Procedure Procedure Types Cath Procedure Diagnostic Procedure LHC LH w/Coronaries Sedation Charges Moderate Sedation up to 15 minutes PCI Procedure PTCA PTCA Initial Procedure Description Procedure Date Procedure Date: 12/05/2018 Procedure Start Time: 14:03 Procedure End Time: 14:33 Procedure Staff Name Function Andrey Bosch MD Performing Physician Falguni Jefferson RT Monitor Дмитрий Villa RT Scrub Magda Pearce RT Scrub Susana Yoo RN Nurse Procedure Data Cath Procedure Fluoroscopy Diagnostic fluoroscopy Total fluoroscopy Time: time: 10.3 min 10.3 min Diagnostic fluoroscopy Total fluoroscopy dose: 827 dose: 827 mGy mGy Contrast Material Contrast Material Type Amount (ml) Isovue 300 72 Entry Location Entry Primary Successful Side Size Upsize Upsize Entry Closure Succes sful Closure Location (Fr) 1 (Fr) 2 (Fr) Remarks Device Remarks Femoral Right 5 Fr 6 Fr Exoseal artery Short Estimated blood loss: 10 ml Diagnostic catheters Device Type Used For End Catheter Placement MULTIPACK Pigtail 5 Fr Procedure catheter MULTIPACK JL 4.0 5Fr Procedure catheter MULTIPACK 3DRC 5Fr Procedure catheter Procedure Complications No complications Procedure Medications Medication Administration Route Dosage Oxygen etCO2 Nasal cannula 2 l/min Lidocaine 2% added to field 20 Heparin Flush Bag added to field 2 bags (1000units/500ml NS) 0.9% NaCl I.V. 100 ml/hr Versed I.V. 1.5 mg Versed I.V. 1 mg Fentanyl I.V. 75 mcg Fentanyl I.V. 50 mcg Heparin Bolus I.V. 4000 units Integrilin (Bolus I.V. 5.6 ml 2mg/ml) 0.9% NaCl I.V. bolus 250 ml Hemodynamics Rest BSA: 1.69 (m2) O2 Consumption: Estimated: 229.84 (ml/min) O2 Consumption indexed : Estimated:136 (ml/min/m) Pre Cath Intra NCS Post Cath Vital Signs Time Heart Resp SPO2 etCO2 NIBP Rhythm Pain Sedation Rate (ipm) (%) (mmHg) (mmHg) Status Level (bpm) 13:53:02 65 14 100 32.9 116/59(93) NSR 0 (11) 10(A) , No pain 13:57:16 66 16 100 34.4 102/58(83) NSR 0 (11) 10(A) , No pain 14:01:24 64 10 100 35.9 98/52(0) NSR 0 (11) 10(A) , No pain 14:05:27 64 14 100 0 85/51(61) NSR 0 (11) 10(A) , No pain 14:09:33 65 10 100 26.2 80/49(67) NSR 0 (11) 9(A) , No pain 14:13:37 67 17 100 10.4 80/54(67) NSR 0 (11) 9(A) , No pain 14:17:42 65 13 100 15.7 72/46(66) NSR 0 (11) 9(A) , No pain 14:21:46 66 16 100 17.9 65/41(59) NSR 0 (11) 9(A) , No pain 14:25:46 66 14 100 11.9 75/46(61) NSR 0 (11) 9(A) , No pain 14:29:48 66 14 100 26.1 93/51(76) NSR 0 (11) 10(A) , No pain 14:34:02 65 20 33.7 103/45(92) NSR 0 (11) 10(A) , No pain Medications Time Medication Route Dose Verified Delivered Reason Notes Effectiveness by by 13:51:31 Oxygen etCO2 2 Andrey Buffie used for Nasal l/min Danitza Yoo RN procedure cannula 13:51:37 Lidocaine 2% added 20ml Andrey Andrey for local to vial Danitza Bosch MD anesthetic field 13:51:43 Heparin Flush added 2 Andrey Andrey used for Bag to bags Danitza Bosch MD procedure (1000units/500ml field NS) 13:51:51 0.9% NaCl I.V. 100 Andrey Buffie Per physician ml/hr Danitza Yoo RN 14:03:27 Versed I.V. 1.5 Andrey Buffie for sedation mg Danitza Yoo RN 14:03:35 Fentanyl I.V. 75 Andrey Buffie for sedation mcg Danitza Yoo RN 14:04:48 0.9% NaCl I.V. 250 Andrey Buffie Per physician bolus ml Danitza Yoo RN 14:07:29 Versed I.V. 1 mg Andrey Buffie for sedation Danitza Yoo RN 14:07:36 Fentanyl I.V. 50 Andrey Buffie for sedation mcg Danitza Yoo RN 14:12:50 Heparin Bolus I.V. 4000 Andrey Buffie for verif ied units Danitza Yoo RN anticoagulation with dr bosch 14:13:57 Integrilin I.V. 5.6 Andrey Meza for (Bolus 2mg/ml) ml Danitza Yoo RN antiplatelet therapy Procedure Log Time Note 13:37:23 Дмитрий Villa RT(R) sent for patient. Start room use. 13:37:25 Procedure Status Elective Heart Cath (OP). 13:37:26 Time tracking: Regular hours (M-F 7:00 - 5:00) 13:37:31 Plan of Care:Hemodynamics will remain stable., Cardiac rhythm will remain stable., Comfort level will be maintained., Respiratory function will remain adequate., Patient/ family verbilizes understanding of procedure., Procedure tolerated without complication., Recovers from procedure without complications.. 13:37:33 Signed procedure consent form obtained from patient. 13:38:27 Patient Weight : 138.89 lbs 13:39:24 Patient Height : 64.96 inches 13:40:00 Patient allergic to Codeine 13:40:53 Lab Result : BUN 30 mg/dl 13:40:53 Lab Result : Creatinine 1.2 mg/dl 13:40:53 Lab Result : Hemoglobin 12.7 g/dl 13:40:53 Lab Result : eGFR NONAFRICAN 48 ml/min 13:40:53 Lab Result : Hematocrit 38.1 % 13:44:28 Patient received from Pre/Post Procedure Room to CCL 1 Alert and oriented. Tansferred to table in Supine position. 13:44:29 Warm blankets applied, and rabia hugger turned on for patient comfort. 13:44:30 Correct patient and procedure confirmed by team. 13:44:30 ECG and BP/O2 sat monitors applied to patient. 13:45:11 H&P Date Dictated: 11/27/2018 Within 30 days and on chart., H&P Addendum completed by physician on day of procedure. (MUST COMPLETE FOR ALL OUTPATIENTS). 13:45:12 Pre-procedure instructions explained to patient. 13:45:12 Pre-op teaching completed and patient verbalized understanding. 13:46:16 Family in waiting room. 13:46:18 Patient NPO since Midnight. 13:46:22 Is the patient allergic to Iodine/contrast media? No. 13:46:44 Is patient on blood thinner?No 13:46:51 Patient diabetic? No. 13:46:54 Previous problem with sedation/anesthesia? No ? 13:46:55 Snore? Yes 13:46:57 Sleep apnea? No 13:46:59 Deviated septum? No 13:46:59 Opens mouth fully? Yes 13:47:00 Sticks out tongue? Yes 13:47:05 Airway obstruction? Yes COPD 13:47:11 Dentures? No ? 13:47:15 Pre procedure: right dorsailis pedis pulse 1+ Palpable, but thready & weak; easily obliterated 13:47:20 Patient pain scale 0/10 ?. 13:47:26 IV patent on arrival in left forearm with 0.9% NaCl at [facility]. 13:47:35 Lab results completed and on chart. 13:47:39 Alarms reviewed by R. N. 13:47:40 Sharps counted by scrub and verified by R.N. 13:47:44 Right groin area was prepped with chlora-prep and draped in sterile fashion 13:51:31 Oxygen 2 l/min etCO2 Nasal cannula was administered by Susana Yoo RN; used for procedure; 13:51:37 Lidocaine 2% 20ml vial added to field was administered by Andrey Bosch MD; for local anesthetic; 13:51:43 Heparin Flush Bag (1000units/500ml NS) 2 bags added to field was administered by Andrey Bosch MD; used for procedure; 13:51:51 0.9% NaCl 100 ml/hr I.V. was administered by Susana Yoo RN; Per physician; 13:51:54 Vital chart was started 13:58:11 Zero performed for pressure channel P1 14:02:09 --------ALL STOP TIME OUT------ 14:02:09 Final Timeout: patient, procedure, and site verified with staff and physician. All members of the team are in agreement. 14:02:12 Right groin site verified by team. 14:02:15 Fire Safety Assessment: A--An alcohol-based skin anteseptic being used preoperatively., C--Open oxygen or nitrous oxide is being used., D--An ESU, laser, or fiber-optic light is being used. 14:02:17 Physical assessment completed. ASA score P 2 - A patient with mild systemic disease as per Andrey Bosch MD. 14:02:21 3a) 45-59 Moderately reduced kidney function. 14:02:25 Maximum allowable contrast dose (3.7 X eGFR X 0.75)126 ml. 14:02:29 Sedation plan: IV Moderate Sedation Medication:Versed, Fentanyl 14:03:25 Procedure started. 14:03:25 Full Disclosure recording started 14:03:27 Versed 1.5 mg I.V. was administered by Susana Yoo RN; for sedation; 14:03:34 Local anesthetic to right femoral artery with Lidocaine 2% by Andrey Bosch MD.INITIAL ACCESS ONLY 14:03:35 Fentanyl 75 mcg I.V. was administered by Susana Yoo RN; for sedation; 14:03:57 Use device set Femoral Dx 14:03:58 ACIST Syringe (19036) opened to sterile field. 14:03:59 Bag Decanter (2002S) opened to sterile field. 14:04:00 ACIST Hand Control (12809) opened to sterile field. 14:04:00 ACIST Manifold (13811) opened to sterile field. 14:04:01 Tegaderm 4 x 4 (1626W) opened to sterile field. 14:04:02 Medline Cath Pack ([id number]) opened to sterile field. 14:04:03 DIAGNOSTIC Multipack 5Fr catheter set (JU7959) opened to sterile field. 14:04:04 SHEATH 5FR [place] (ONY911) opened to sterile field. 14:04:04 EMERALD Guide Wire (481-884) opened to sterile field. 14:04:48 0.9% NaCl 250 ml I.V. bolus was administered by Susana Yoo RN; Per physician; 14:07:18 A 5 Fr sheath was inserted into the Right Femoral artery 14:07:29 Versed 1 mg I.V. was administered by Susana Yoo RN; for sedation; 14:07:36 Fentanyl 50 mcg I.V. was administered by Susana Yoo RN; for sedation; 14:07:37 A MULTIPACK Pigtail 5 Fr catheter was advanced over the wire and used for Procedure. 14:07:58 LV gram done using AUGUSTIN 14:08:02 Injector settings: Ml/sec: 10, Volume: 20, 14:08:24 EF : 60 % 14:08:26 Catheter removed. 14:08:34 A MULTIPACK JL 4.0 5Fr catheter was advanced over the wire and used for Procedure. 14:09:58 LCA angiography performed. 14:09:59 Catheter removed. 14:10:06 A MULTIPACK 3DRC 5Fr catheter was advanced over the wire and used for Procedure. 14:10:39 RCA angiography performed. 14:10:41 Catheter removed. 14:10:54 GUIDE 6FR XBLAD 3.5 catheter ([id number]) opened to sterile field. 14:11:14 SHEATH 6FR [place] (MJI495) opened to sterile field. 14:11:19 CHOICE PT Extra Support J 300cm guide wire ([id number]) opened to sterile field. 14:11:45 Sheath upsized to a 6 Fr Short. 14:12:16 6 Fr XBLAD 3.5 guide catheter was inserted over the wire 14:12:50 Heparin Bolus 4000 units I.V. was administered by Susana Yoo RN; for anticoagulation; verified with dr bosch 14:13:15 INFLATOR Merit BasixCompak (YG1842) opened to sterile field. 14:13:24 CHOICE ES 300 wire advanced. 14:13:57 Integrilin (Bolus 2mg/ml) 5.6 ml I.V. was administered by Susana Yoo RN; for antiplatelet therapy; 14:14:52 WIRE ADVANCED ACROSS THE CIRC 14:17:31 Inflate balloon Inflation number: 1 A EMERGE OTW 2.0 x 20 balloon ([id number]) was prepped and advanced across the Mid CX , then inflated to 9 DALLIN for 0:00 (min:sec) . 14:18:13 Balloon removed over the wire. 14:18:14 Wire removed. 14:19:02 SHINOBI 300cm 0.014 guide wire ([id number]) opened to sterile field. 14:19:31 SHINOBI WIRE ADVANCED TO CIRC 14:21:11 UNABLE TO CROSS CIRC. WIRE REMOVED 14:21:17 WHISPER 300cm guide wire ([id number]) opened to sterile field. 14:21:55 WHISPER 300 ADVANCED TO CIRC 14:26:49 The EMERGE OTW 1.5 x 15 balloon ([id number]) was advanced and then removed because of failure to cross lesion 14:27:00 UNABLE TO CROSS CIRC 14:27:02 Guide catheter removed. 14:27:08 EXOSEAL 6Fr (EX600) opened to sterile field. 14:27:17 Sheath removed intact; hemostasis achieved with Exoseal to the Right Femoral artery. 14:27:22 Procedure ended.(Physican Out) 14:27:45 Fluoroscopy time 10.30 minutes. 14:27:50 Flurop Dose total: 827 14:27:50 Fluoroscopy dose: 827 mGy 14::56 Dose Area Product 94114. mGy/cm. 14:28:00 Contrast amount:Isovue 300 72ml. 14:28: Maximum allowable dose exceeded? No. 14:28:03 Sharps counted by scrub and verified by R.N. 14::07 Post-op/insertion site Right Femoral artery dressed using a 4 x 4 and Tegaderm. 14:28: Post-procedure physical assessment completed. ASA score P 2 - A patient with mild systemic disease as per Andrey Bosch MD. 14:28:13 Post procedure rhythm: sinus rhythm 14:28:15 Estimated blood loss: 10 ml 14:28:16 Post procedure instruction explained to patient.Patient verbalizes understanding. 14:28:16 Patient needs reinforcement of post procedure teaching. 14:29:20 Procedure type changed to Cath procedure, Diagnostic procedure, LHC, LHC w/Coronaries, Sedation Charges, Moderate Sedation up to 15 minutes, PCI procedure, PTCA, PTCA Initial 14:30:07 Procedure and supply charges have been captured, reviewed, submitted and are correct. 14:30:09 Procedure Complication : No complications 14:33:19 Vital chart was stopped 14:33:19 See physician's report for complete and final results. 14:33:21 Report given to Pre/Post Procedure Room. 14:33:24 Patient transfered to Pre/Post Procedure Room with Bed. 14:33: Procedure ended. 14:33: Full Disclosure recording stopped 14::31 End room use (Document Last) Intervention Summary Intervention Notes Time ActionType Lesion and Equipment Action# Pressure Duration Attributes Used 14:17:31 Inflate Mid CX EMERGE OTW 1 9 00:00 balloon 2.0 x 20 balloon ([id number]) 14:26:49 Discard EMERGE OTW Balloon 1.5 x 15 balloon ([id number]) Device Usage Item Name Manufacture Quantity Catalog Number Hospital Part Current Min imal Lot# / Charge Number Stock Stock Serial# Code ACIST Acist 1 37638 353898 977916 752867 20 Syringe Medical (25950) Systems Inc Bag Decanter Microtek 1 2001S 937494 54020 805997 5 (2001S) Medical Inc. ACIST Hand Acist 1 73800 444839 790453 655516 5 Control Medical (62346) Systems Inc ACIST Acist 1 03081 987768 752245 791817 5 Manifold Medical (06998) Systems Inc Tegaderm 4 x 3M 1 1626W 696315 553499 739166 5 4 (1626W) Medline Cath Medline 1 [id number] 289847 87344 513250 5 Pack ([id number]) DIAGNOSTIC Cardinal 1 GK9541 298761 46873 346217 30 Multipack Latest Medical 5Fr catheter set (CP2152) SHEATH 5FR Terumo 1 YGA641 441218 070113 116724 5 [place] (INJ576) EMERALD Cardinal 1 502-455 063463 623388 979729 5 Guide Wire Health (502-455) MULTIPACK Cardinal 1 085342 5 Pigtail 5 Fr Health catheter MULTIPACK JL Cardinal 1 811866 5 4.0 5Fr Health catheter MULTIPACK Cardinal 1 114275 5 3DRC 5Fr Health catheter GUIDE 6FR Cardinal 1 96461191 983752 961308 835002 10 XBLAD 3.5 Health catheter (77551854) SHEATH 6FR Terumo 1 LHP734 582255 634827 554244 40 [place] (MUL380) CHOICE PT [place] 1 [id number] 999484 20181014 461514 5 Extra Scientific Support J 300cm guide wire (7545690B1) INFLATOR Merit 1 GF8036 332958 167959 543595 15 Porticor Cloud Security Medical BasixCompak (KI7785) EMERGE OTW [place] 1 [id number] 021627 211728 560315 5 [id number] 2.0 x 20 Scientific balloon ([id number]) SHINOBI Cardinal 1 914890X 700922 732867 522514 1 300cm 0.014 Health guide wire (296128A) WHISPER Garcia 1 [id number] 235962 932175 244156 5 300cm guide Vascular wire (2421302RE) EMERGE OTW [place] 1 [id number] 698982 217156 007874 5 23923481 1.5 x 15 Scientific balloon ([id number]) EXOSEAL 6Fr Cardinal 1 EX600 799686 594077 834404 10 (EX600) Health Signature Audit [place] Stage Time Signature Unsigned Intra-Procedure 12/05/2018 Falguni Jefferson 2:34:26 PM RT(R) Signatures Performing Physician : Signature : Andrey Bosch MD Date : Time : Monitor : Falguni Jefferson Signature : RT Date : Time : Nurse : Susana Yoo RN Signature : Date : Time : [address] [place] [address]
[~2018-12-05 09:20] MED LIST changes: -CHANTIX 1 MG TAB1 MG PO
[2018-12-05] MEDS ORDERED: CHANTIX 1 MG TAB1 MG PO (09:47)
[2018-12-05 09:57] VITALS: BP 93/47; Ht 165.1 cm; Wt 62.7 kg
[2018-12-05 10:15] LABS: BASOPHILS 0.5 % (0-2); EOSINOPHILS 3.3 % (0-7); HEMATOCRIT 38.1 % (36.0-48.0); HEMOGLOBIN 12.7 g/dL (12-16); IMMATURE GRANULOCYTES 0.3 % (0-5); LYMPHOCYTES 23.4 % (15-50); MCH 30.5 pg (26.0-34.0); MCHC 33.3 g/dL (31.0-37.0); MCV 91.6 fL (80.0-100.0); MEAN PLATELET VOLUME 9.7 fL (7.4-10.4); MONOCYTES 6.9 % (2-11); NEUTROPHILS 65.6 % (40-80); PLATELET COUNT 333 10x3/uL (130-400); RBC 4.16 10x6/uL (4.00-5.40); RDW 14.2 % (11.5-14.5); WBC 11.1 10x3/uL (4.8-10.8)
[2018-12-05 10:29] LABS: ANION GAP 11.9 mmol/L (8-16); CALCIUM 9.6 mg/dL (8.5-10.1); CARBON DIOXIDE 26.7 mmol/L (21.0-32.0); CHOL - HDL RATIO 4.8 ratio (2.3-4.1); CREATININE - SERUM 1.2 mg/dL (0.6-1.3); LDL-HDL RATIO 3.2 ratio (1.5-3.5); POTASSIUM - SERUM 4.6 mmol/L (3.5-5.1)
--- NOTE | 2018-12-05 14:45 | NUR ---
PATIENT ARRIVED TO ROOM 4, PLACED ON CM. VSS. RIGHT GROIN DRESSING IS CDI, NO S/S OF BLEEDING OR HEMATOMA.
--- NOTE | 2018-12-05 15:00 | NUR ---
PATIENT AWAKE, EATING TURKEY SANDWICH AND DRINKING COKE, NO N/V. HEAD FLAT ON PILLOW. RIGHT GROIN DRESSING IS CDI, NO S/S OF BLEEDING OR HEMATOMA. NO C/O PAIN, NUMBNESS, OR TINGLING. VSS ON ROOM AIR. PHYSICIAN AT BEDSIDE TO UPDATE PATIENT AND FAMILY.
--- NOTE | 2018-12-05 15:30 | NUR ---
PATIENT AWAKE, EATING WININE CRACKERS. VSS ON ROOM AIR. RIGHT GROIN DRESSING IS CDI, NO S/S OF BLEEDING OR HEMATOMA. NO C/O PAIN, NUMBNESS, OR TINGLING. NO N/V.
--- NOTE | 2018-12-05 16:00 | NUR ---
PATIENT INTERMITTENTLY RESTING, VSS ON ROOM AIR. RIGHT GROIN DRESSING IS CDI, NO S/S OF BLEEDING OR HEMATOMA. NO C/O PAIN, NUMBNESS, OR TINGLING. NO SHORTNESS OF BREATH. NO N/V.
--- NOTE | 2018-12-05 16:30 | NUR ---
PATIENT RESTING. RIGHT GROIN DRESSING IS CDI, NO S/S OF BLEEDING OR HEMATOMA. VSS ON ROOM AIR. FAMILY PRESENT AT BEDSIDE. NO C/O PAIN.
--- NOTE | 2018-12-05 17:00 | NUR ---
PATIENT AWAKE, TALKING WITH FAMILY. VSS ON ROOM AIR. EATING M&Ms AND DRINKING COKE, NO N/V. RIGHT GROIN DRESSING IS CDI, NO S/S OF BLEEDING OR HEMATOMA.
--- NOTE | 2018-12-05 17:30 | NUR ---
HEAD OF BED ELEVATED TO 30 DEGREES, RIGHT GROIN DRESSING IS CDI, NO S/S OF BLEEDING OR HEMATOMA. PATIENT AWAKE AND ALERT, DENIES ANY PAIN, NUMBNESS, OR TINGLING. VSS ON ROOM AIR.
--- NOTE | 2018-12-05 18:00 | NUR ---
PATIENT AWAKE, FULLY ALERT, DENIES ANY FEELINGS OF DIZZINESS OR BEING LIGHT HEADED, NO N/V. NIBP 77/43. BLOOD PRESSURE CUFF ADJUSTED AND RECHECKED WITH BLOOD PRESSURE NOW 106/48. PATIENT SITTING UP IN BED, RIGHT GROIN DRESSING IS CDI, NO S/S OF BLEEDING OR HEMATOMA. NO C/O PAIN, NUMBNESS, OR TINGLING. WILL CONTINUE TO MONITOR.
--- NOTE | 2018-12-05 18:15 | NUR ---
NIBP 122/53. PATIENT SITTING UP IN BED. RIGHT GROIN DRESSING IS CDI, NO S/S OF BLEEDING OR HEMATOMA. VSS ON ROOM AIR. IV REMOVED. EDUCATION REGARDING DISCHARGE INSTRUCTIONS GIVEN TO PATIENT AND FAMILY, BOTH VOICE UNDERSTANDING. NO C/O PAIN, NUMBNESS, OR TINGLING.
--- NOTE | 2018-12-05 18:30 | NUR ---
PATIENT VOIDED WITHOUT DIFFICULTY, PATIENT TRANSPORTED VIA WHEELCHAIR TO CAR WITH FAMILY DRIVING, ALL BELONGINGS WITH PATIENT.
--- NOTE | 2018-12-09 11:09 | OP ---
PATIENT NAME: GABRIEL PATEL MEDICAL RECORD: [id number] :59 LOCATION:[facility] ADMISSION DATE: SURGEON: JUVE BRUMFIELD MD DATE OF OPERATION: 12/05/2018 PROCEDURES: 1. PTCA, left circumflex. 2. Left heart catheterization. 3. Selective coronary angiography. 4. Left ventriculogram. INDICATION: Angina, coronary artery disease, abnormal nuclear stress test. PROCEDURE IN DETAIL: After informed consent was obtained with detailed description of risks and benefits as well as alternative therapies, the patient elected to proceed with angiogram and angioplasty. The right femoral area was prepped and draped in normal sterile fashion. The right femoral artery was cannulated via modified Seldinger technique with placement of 6-Spanish sheath. All catheters were exchanged through this sheath. FINDINGS: Left ventriculogram performed in standard 30-degree AUGUSTIN view reveals good cardiac wall motion. Ejection fraction 70%. SELECTIVE CORONARY ANGIOGRAPHY: 1. Left main is with no significant angiographic disease. 2. Left anterior descending has mild irregularities, but no flow-limiting stenosis. 3. Left circumflex has previously placed stents. These are closed. 4. Right coronary has previously placed stents. These are widely patent with no significant restenosis. No disease elsewise of the RCA or its branches. ATTEMPTED PTCA AND STENT OF CIRCUMFLEX: We were able to traverse a wire to the proximal aspect as well as a balloon. We were able to balloon the proximal aspect of the circumflex and opened with a 2.0 balloon, taken to 11 atmospheres. We could not pass a wire past the mid vessel. The stents at this point are 100% closed and no wire including a Shinobi wire would pass this. OVERALL IMPRESSION: A 100% closure of the left circumflex. We are able to PTCA the proximal aspect of this, but no wire passed through the mid vessel. 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 TRANSINT:[id number] Voice Confirmation ID: [id number] DOCUMENT ID: [id number] JUVE BRUMFIELD MD at 1109 CC: [id number] DICTATION DATE: 12/05/18 1432 SMOG TECHNICIAN: 12/05/18 1538 DEP CLI 12/05/18 [id number] [place] [address]
== END 2018-12-05 18:30 ==
LOC: D.CATH 09:20
PROVIDERS: ATTEND Internal Medicine Interventional Cardiology
DX: I25.119 Atherosclerotic heart disease of native coronary artery with unspecified angina pectoris (principal); R94.39 Abnormal result of other cardiovascular function study; Z01.812 Encounter for preprocedural laboratory examination

== ENCOUNTER → 2019-01-05 13:59 | Outpatient (CLI) | payer MEDICAID ==
[2018-12-05 09:57] VITALS: BMI 23.0
[~2019-01-05 13:59] MED LIST changes: +CHANTIX 1 MG TAB1 MG PO
--- NOTE | 2019-01-06 13:38 | EC ---
PATIENT:GABRIEL PATEL DATE OF SERVICE: 01/05/19 SEX: F MEDICAL RECORD: [id number] DATE OF : 59 LOCATION:[facility] AGE OF PATIENT: 63 ADMISSION DATE: 01/05/19 REFERRING PHYSICIAN: INTERPRETING PHYSICIAN: JUVE BOSCH MD ECHOCARDIOGRAM REPORT ECHO CHARGES 4 ECHO COMPLETE Date: 01/05/19 CLINICAL DIAGNOSIS: HTN/RECENT HYPOTENSION, HX CAD ASSESS EF AND VALVES ECHOCARDIOGRAPHIC MEASUREMENTS (adult normal given) AC root (d.<3.7cm) 2.9 cm LV Septum d (<1.2 cm> 1.2 cm Valve Excursion 1.3 cm LV Septum (systole) 1.4 cm Left Atria (s.<4.0cm> 3.0 cm LVPW d(<1.2cm) 1.3 cm RV (d.<2.3cm) 2.2 cm LVPW (sytole) 1.5 cm LV diastole(<5.6CM) 4.3 cm MV E-F(>70mm/sec) cm LV systole 3.1 cm LVOT Diameter 1.3 cm MV exc.(>10mm) 1.6 cm Est.ejection fraction (50-75%) % DOPPLER: LVIT cm/sec A 96.0 cm/sec E 69.0 cm/sec LA cm/sec RVSP 20 mmHg LVOT 130 cm/sec AOP1/2T m/s Asc. Ao 165 cm/sec RVOT 133 cm/sec RA cm/sec PA 138 cm/sec AV Gradient Peak 10.86mmHg AV Mean 6.34 mmHg AV Area 1.3 cm MV Gradient Peak 6.71 mmHg MV Mean 4.03 mmHg MV Area cm COMMENTS: Threading Machine Feeder Automatic: Jeremiah MURRAY Duct Cleaner: 1 Dr. Bosch TAPE# PACS Pericardial Effusion N DATE OF SERVICE: 01/05/2019 FINDINGS: 1. Left ventricular chamber size is within normal limits. Left ventricular systolic function is normal at 55%. 2. Left atrium, right atrium and right ventricular chamber sizes are within normal limits. 3. Valvular structures have normal structure and motion. 4. Doppler interrogation reveals no significant valve insufficiency or stenosis. Pulmonary systolic pressure is estimated at 20 mmHg. ECHOCARDIOGRAM REPORT [id number] GABRIEL PATEL 5. No evidence of pericardial effusion or left ventricular thrombus. TRANSINT:[id number] Voice Confirmation ID: [id number] DOCUMENT ID: [id number] JUVE BOSCH MD at 1338 CC: [id number] DICTATION DATE: 01/05/191656 CAN FILLING AND CLOSING MACHINE TENDER: 01/06/19 0137 DEP CLI 01/05/19 [place] [id number] [place] [id number]
== END | disposition home or self-care (01) ==
LOC: D.HCCECHO 13:59
PROVIDERS: ATTEND Internal Medicine Interventional Cardiology
DX: I10 Essential (primary) hypertension (principal)